=== PATIENT | male | born 1965 | race Two or more races ===

== ENCOUNTER 2019-05-26 12:19 | Emergency (ER) | payer MEDICAID, OTHER ==
[~2019-05-26] VITALS: Ht 175.3 cm; Wt 78.5 kg
[2019-05-26 12:34] VITALS: BP 131/92
[2019-05-26] MEDS ORDERED: TDAP [DIPH/PERTUSSIS/TET] 0.5 ML VIAL IM ONE ×2 (13:29→13:30)
[2019-05-26] MEDS ORDERED: IBUPROFEN 600 MG TABLET PO ONE ×2 (13:29→13:30)
--- NOTE | 2019-05-26 14:25 | NUR ---
Patient discharged to home in stable condition. Written and verbal after care instructions given. Patient verbalizes understanding of instruction.
== END 2019-05-26 14:25 | disposition home or self-care (01) ==
LOC: ER 12:19
DX: L03.011 Cellulitis of right finger (principal); Z60.2 Problems related to living alone
CPT/HCPCS: 73140-TC; 90715

== ENCOUNTER 2019-06-12 09:16 | Emergency (ER) | payer OTHER ==
[~2019-06-12] VITALS: Ht 170.2 cm; Wt 78.9 kg
[2019-06-12 09:20] VITALS: BP 120/73
== END 2019-06-12 09:46 | disposition home or self-care (01) ==
LOC: ER 09:16
DX: L03.011 Cellulitis of right finger (principal); Z60.2 Problems related to living alone